=== PATIENT | female | born 1970 | race Caucasian/White ===

== ENCOUNTER 2020-03-15 15:06 | Outpatient (CLI) | payer BC, SELFPAY ==
--- NOTE | ~2020-03-15 | XR_ITS ---
XR knee LT min 4V DATE: 03/15/2020 15:41 INDICATION: Bilateral knee pain TECHNIQUE: 4 views including crosstable lateral COMPARISON: None FINDINGS: Severe osteoarthritis at the patellofemoral and medial compartments. Minimal osteoarthritis at the lateral compartment. No fracture or dislocation or joint effusion. No periosteal reaction or bone destruction or radiopaqu e intra-articular loose body or chondrocalcinosis. IMPRESSION: Tricompartment osteoarthritis involving particularly the medial and patellofemoral compar tments Reviewed, dictated and finalized at location A. IMPRESSION: Tricompartment osteoarthritis involving particularly the medial and patellofemoral compartments
--- NOTE | ~2020-03-15 | XR_ITS ---
XR knee RT min 4V DATE: 03/15/2020 15:41 INDICATION: Bilateral generalized knee pain TECHNIQUE: 4 views including crosstable lateral COMPARISON: None FINDINGS: There is moderately prominent loss of joint space and mild. There is spurring at the medial compartment. There is minimal periarticular spurring at the patellofemoral compartment. No fracture or dislocation or joint effusion. No periosteal reaction or bone destruction. No radiopaq ue intra-articular loose loose body or chondrocalcinosis. IMPRESSION: Osteoarthritis, greatest involvement at the medial compartment Reviewed, dictated and finalized at location A.
== END 2020-03-15 15:07 | disposition home or self-care (01) ==
LOC: ANHIMG 15:14
PROVIDERS: PCP Physician Assistant; Visit Provider Physician Assistant
DX: M17.0 Bilateral primary osteoarthritis of knee (principal)
CPT/HCPCS: 73564

== ENCOUNTER 2020-09-28 06:55 | Outpatient (NON) | payer BC, SELFPAY ==
[2020-09-28 19:42] LABS: SARS-CoV-2 RNA PCR Positive
== END 2020-09-28 06:56 ==
LOC: ANHCOVIDDT 07:06
PROVIDERS: PCP Physician Assistant; Visit Provider Physician Assistant
DX: U07.1 COVID-19 (principal); R05 Cough
CPT/HCPCS: C9803; U0003

== ENCOUNTER 2020-11-18 11:00 | Outpatient (CLI) | payer BC, SELFPAY ==
--- NOTE | ~2020-11-18 | US_ITS ---
EXAMINATION: US pelvic complete w TV EXAM DATE: 11/18/2020 11:56 INDICATION: Thickened endometrial lining. TECHNIQUE: Pelvic transabdominal and transvaginal sonogram was performed. There are multiple graysca le and Doppler images available for interpretation. Comparison is made to prior examination from 08/24 . FINDINGS: Uterus measures 11.7 x 6.9 x 5.3 cm, is only visualized on transabdominal abdominal imagin g. There is centrally hypoechoic region which may or may not be involving the endometrium. This was m easured as the endometrium at 3.4 cm, which if is the endometrium considered significantly thickened. Probably this is the same finding which has been described in [address] and ultrasound. Could not i dentify any vascularity within this, however only was visualized transabdominally. Differential diagn osis includes loculated endometrial fluid, endometrial polyp, endometrial hyperplasia and cancer. Tin y nabothian cyst. Right ovary is identified and morphologically normal, the left is not identified. No left adnexal mas s. IMPRESSION: Persistent abnormal central uterine hypoechogenic region, differential diagnosis includi ng loculated fluid, endometrial polyp, hyperplasia and cancer. Reviewed, dictated and finalized at location B. 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
== END 2020-11-18 11:01 | disposition home or self-care (01) ==
PROVIDERS: PCP Physician Assistant; Visit Provider Obstetrics & Gynecology Gynecology
DX: R93.89 Abnormal findings on diagnostic imaging of other specified body structures (principal)
CPT/HCPCS: 76830; 76856

== ENCOUNTER 2020-11-26 17:11 | Emergency (ER) | payer BC, SELFPAY ==
[2020-11-26 17:20] VITALS: BP 145/97; PULSE 98; RESP 16; TEMP 37.1; O2SAT 98
[2020-11-26 17:21] VITALS: BP 145/97; PULSE 98; RESP 16; TEMP 37.1; O2SAT 98
--- NOTE | 2020-11-26 17:59 | ED.URI ---
HPI - URI/Sore Throat General Chief Complaint: Upper Respiratory Infection Stated Complaint: SORE THROAT Source: patient Mode of arrival: ambulatory Limitations: no limitations History of Present Illness HPI Narrative: Patient is a 50-year-old female who presents complaining of sore throat and headache x2 to 3 days. She reports increasing pain this afternoon. Denies fever. Denies nausea, vomiting or cough. Patient reports having Covid in September. 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 She denies Covid risk. She denies taking any [id number] medications at this time. She denies significant medical history. MD elicited complaint: sore throat Related Data Home Medications Medication Instructions Recorded Confirmed cyanocobalamin (vitamin B-12) 11/26/20 dapagliflozin-metformin [Xigduo XR] PO 11/26/20 escitalopram oxalate mg 11/26/20 hydrochlorothiazide 11/26/20 levothyroxine [Tirosint] PO 11/26/20 lifitegrast [Xiidra] drp 11/26/20 liothyronine mcg 11/26/20 losartan 11/26/20 semaglutide [Ozempic] mg SUBCUT 11/26/20 semaglutide [Ozempic] mg SUBCUT 11/26/20 simvastatin mg 11/26/20 Allergies Allergy/AdvReac Type Severity Reaction Status Date / Time valacyclovir Allergy Mild Rash Unverified 01/06/09 12:43 Review of Systems Review of Systems: Narrative: CONSTITUTIONAL: Denies fever, chills, or sweats. EYES: Denies visual changes, redness, or discharge. ENT: Reports sore throat CARDIOVASCULAR: Denies chest pain, palpitations, or edema. RESPIRATORY: Denies cough or dyspnea. GASTROINTESTINAL: Denies abdominal pain, nausea, vomiting, or diarrhea. GENITOURINARY: Denies dysuria or hematuria. SKIN: Denies rash or itching. MUSCULOSKELETAL: Denies back pain, joint pain, or myalgia. NEUROLOGIC: Reports headache, denies numbness, dizziness, or weakness. PSYCHIATRIC: Denies anxiety or depression. [facility] Past Medical History Medical History COVID-19 DM II (diabetes mellitus, type II), controlled H/O: HTN (hypertension) History of angina History of kidney stones Hypercholesteremia Renal disease Surgical History Surgical History History of classical section Hx of tubal ligation Family History Family History Sibling Family history of obesity Asthma Grandparent Family history of obesity Family history of osteoporosis Depression Family history of chronic obstructive pulmonary disease Diabetes mellitus Mother Family history of migraine headaches Hypertension Social History Social History Smoking status: Never smoker Second hand tobacco smoke exposure: Yes Alcohol intake: never Gender identity (if verbalized by the patient): Female Comments At the time of signature, I have reviewed and agree with nursing past medical, surgical, social, and family history unless otherwise noted. Please see nursing chart for further information. There is no relevant family history pertinent to the presenting complaint. Exam Narrative: Exam Narrative: GENERAL: Well-appearing, well-nourished, and in no acute distress. HEAD: Normocephalic, atraumatic. EYES: EOMI. No redness or drainage. Conjunctiva are normal. ENT: Mucous membranes pink and moist. Nares clear. Throat normal erythema, edema and exudate noted. Uvula midline. NECK: Positive cervical lymphadenopathy. CHEST: No respiratory distress. HEART: Regular rate and rhythm. EXTREMITIES: Normal range of motion. No edema. SKIN: Warm, dry, no rash. NEURO: No focal deficits. Alert and oriented x3. Gait steady. PSYCH: Normal affect. No signs of depression or anxiety. Course Vital Signs Vital signs: Vital Signs Temperature 37.1 C 11/26/20 17:20 Pulse Rate 98
[2020-11-29 18:03] LABS: SARS-CoV-2 RNA PCR Negative
== END 2020-11-26 18:04 | disposition home or self-care (01) ==
PROVIDERS: Emergency Provider Nurse Practitioner; PCP Physician Assistant
DX: J02.9 Acute pharyngitis, unspecified (principal); Z20.822 Contact with and (suspected) exposure to COVID-19; E11.9 Type 2 diabetes mellitus without complications; I10 Essential (primary) hypertension; I20.9 Angina pectoris, unspecified; E78.00 Pure hypercholesterolemia, unspecified; Z86.16 Personal history of COVID-19; Z87.442 Personal history of urinary calculi
CPT/HCPCS: 87081; 87880; 99213; C9803; G0463; U0003; U0005

== ENCOUNTER 2020-12-23 07:53 | Outpatient (CLI) | payer BC, SELFPAY ==
--- NOTE | 2020-12-23 08:00 | ECG_ITS ---
Measurements Intervals [place] Rate: 73 P: -12 DC: 130 QRS: 11 QRSD: 114 T: 30 QT: 383 QTc: 423 Interpretive Statements SINUS RHYTHM INTRAVENTRICULAR CONDUCTION DELAY POOR R WAVE PROGRESSION, ANTERIOR LEADS BORDERLINE T WAVE ABNORMALITY- ANTERIOR LEADS BORDERLINE ECG Electronically Signed On 12-23-2020 8:21:00 CDT by Ravin Feliciano D.O.
[2020-12-23 08:59] LABS: Anion Gap 7 mmol/L (8-16); Blood Urea Nitrogen 18 mg/dL (7-17); Calcium 8.9 mg/dL (8.4-10.2); Carbon Dioxide 31 mmol/L (22-30); Chloride 102 mmol/L (98-107); Estimated Glomerular Filt Rate > 60; Glucose 138 mg/dL (65-105); Potassium 3.4 mmol/L (3.4-5.0); Sodium 140 mmol/L (137-145)
== END 2020-12-23 07:54 | disposition home or self-care (01) ==
LOC: ANHSURGERY 07:55
PROVIDERS: Anesthesiology; PCP Physician Assistant; Visit Provider Obstetrics & Gynecology Gynecology
DX: Z01.818 Encounter for other preprocedural examination (principal); E11.9 Type 2 diabetes mellitus without complications; E78.00 Pure hypercholesterolemia, unspecified
CPT/HCPCS: 36415; 80048; 93005

== ENCOUNTER → 2020-12-24 05:00 | Outpatient (CLI) | payer BC, SELFPAY ==
[2020-12-24 19:22] LABS: SARS-CoV-2 RNA PCR Negative
== END ==
PROVIDERS: PCP Physician Assistant; Visit Provider Obstetrics & Gynecology Gynecology
DX: Z01.812 Encounter for preprocedural laboratory examination (principal); Z20.822 Contact with and (suspected) exposure to COVID-19
CPT/HCPCS: C9803; U0003; U0005

== ENCOUNTER 2020-12-27 01:48 | Day surgery (SDC) | payer BC, SELFPAY ==
[2020-12-14 08:44] VITALS: BMI 48.9
--- NOTE | 2020-12-27 07:23 | WPDHPUPDATE1 ---
History and Physical Update Update Date/Time: 12/27/20 07:23 History and Physical has been reviewed, including an updated exam of the patient. There are NO changes in the patient's condition. Risks, benefits, and alternatives have been discussed and questions answered. Patient agrees to proceed with procedure.
--- NOTE | 2020-12-27 07:23 | PM.HPGS ---
History of Present Illness History of Present Illness Consent: Risks, benefits, and alternatives have been discussed and questions answered. Patient agrees to proceed with procedure. Chief complaint: thickened endometrium Narrative: Tatiana Ayala is a 50 year old female with episode of pelvic pain 09/11 that she went to ER for. Pelvic u/s showed 1.8 cm echogenic debris in endometrium. Patient did not follow up again until 10/28/20. She states no further pain until recent 4 hour episode but on repeat u/s possible 3.4 cm that may be in the endometrium. Recommend furrther work up with hysteroscopy. Risks of infection, bleeding, perforation, and inability to enter endometium were discussed with patient. Agrees to proceed. Review of Systems Review of Systems: Narrative: not repeated day of surgery; patient states no changes in status PMFSH Past Medical History Medical History (Updated 12/27/20 @ 07:31 by Mami Posey MD) COVID-19 Depression DM II (diabetes mellitus, type II), controlled H/O: HTN (hypertension) History of angina History of kidney stones Hypercholesteremia (normal spontaneous vaginal delivery) Renal disease Sleep apnea Surgical History Surgical History (Updated 12/27/20 @ 07:29 by Mami Posey MD) History of Hx of tubal ligation Status post hysteroscopic ablation of endometrium Family History Family History Sibling Family history of obesity Asthma Grandparent Family history of obesity Family history of osteoporosis Depression Family history of chronic obstructive pulmonary disease Diabetes mellitus Mother Family history of migraine headaches Hypertension Social History Social History Smoking status: Never smoker Second hand tobacco smoke exposure: Yes Alcohol intake: never Substance use: never Substance use type: does not use Living arrangements: with family Gender identity (if verbalized by the patient): Female Spiritual care concerns: No Meds Home Medications and Allergies Home Medications Medication Instructions Recorded Confirmed Type dapagliflozin-metformin [Xigduo XR] 1 tablet PO DAILY 11/26/20 12/14/20 History escitalopram oxalate 10 mg PO DAILY 11/26/20 12/14/20 History hydrochlorothiazide 25 mg PO DAILY 11/26/20 12/14/20 History levothyroxine [Tirosint] 125 mcg PO DAILY 11/26/20 12/14/20 History lifitegrast [Xiidra] 1 drp EACH EYE DAILY 11/26/20 12/14/20 History liothyronine 5 mcg PO DAILY 11/26/20 12/14/20 History losartan 50 mg PO DAILY 11/26/20 12/14/20 History semaglutide [Ozempic] 1 mg SUBCUT WEEKLY 11/26/20 12/14/20 History simvastatin 20 mg PO DAILY 11/26/20 12/14/20 History Vitamin D3 (calcium cit-phos) 50,000 units IM MONTHLY 12/14/20 12/14/20 History fexofenadine-pseudoephedrine 1 tablet PO QAM 12/14/20 12/14/20 History [Melissa-D 24 Hour] ibuprofen 600 mg PO DAILY 12/14/20 12/14/20 History mgrur-5y-ejx-epa-fish oil-D3 1 cap PO DAILY 12/14/20 12/14/20 History [Vitamin-D + [place]-3] Allergies Allergy/AdvReac Type Severity Reaction Status Date / Time cortisone Allergy Mild Confusion Verified 12/14/20 08:38 valacyclovir Allergy Mild Rash Unverified 12/14/20 08:38 Exam Const: General: healthy appearing and alert Orientation/consciousness: patient oriented x3 Resp: Effort & Inspection: normal respiratory effort Auscultation: clear to auscultation bilaterally Cardio: Rate: regular rate Rhythm: regular rhythm GI: GI Palp: Yes Soft to palpation, No Tenderness to palpation present (GI) and No Palpable mass present : External Female Exam: normal external appearance Speculum Exam - Vagina: normal appearance of the vagina and normal vaginal discharge Speculum Exam - Cervix: normal appearance of the cervix Bimanual exam- vagina & uterus: uterine size normal and consistency normal Bimanual
[2020-12-27 07:27] VITALS: BP 133/91; PULSE 76; RESP 16; TEMP 36.5; O2SAT 96
[2020-12-27] MEDS: ACETAMINOPHEN 500 MG TABLET 1000 MG PO (07:49)
--- NOTE | 2020-12-27 08:03 | WPDANESEPPF ---
Anes - Initial Pre Proc Eval Procedure: Operation Date: 12/27/20 09:30 Proposed Procedures p Hysteroscopy, Dilation and Curettage - Mami Posey MD Date/Time: 12/27/20 08:03 Surgeon: Mami Posey MD Pre Op Diagnosis: thickened endometrium Patient Data Age: 50 Gender: F Height: 5 ft 2 in Weight: 118.5 kg Last Vital Signs Temp 36.5 C 12/27/20 07:27 Pulse 76 12/27/20 07:27 Resp 16 12/27/20 07:27 BP 133/91 H 12/27/20 07:27 Pulse Ox 96 12/27/20 07:27 Allergies Allergy/AdvReac Type Severity Reaction Status Date / Time cortisone Allergy Mild Confusion Verified 12/27/20 07:43 valacyclovir Allergy Mild Rash Unverified 12/27/20 07:43 Home Medications Medication Instructions Recorded Confirmed Type dapagliflozin-metformin [Xigduo XR] 1 tablet PO DAILY 11/26/20 12/27/20 History escitalopram oxalate 10 mg PO DAILY 11/26/20 12/27/20 History hydrochlorothiazide 25 mg PO DAILY 11/26/20 12/27/20 History levothyroxine [Tirosint] 125 mcg PO DAILY 11/26/20 12/27/20 History lifitegrast [Xiidra] 1 drp EACH EYE DAILY 11/26/20 12/27/20 History liothyronine 5 mcg PO DAILY 11/26/20 12/27/20 History losartan 50 mg PO DAILY 11/26/20 12/27/20 History semaglutide [Ozempic] 1 mg SUBCUT WEEKLY 11/26/20 12/27/20 History simvastatin 20 mg PO DAILY 11/26/20 12/27/20 History Vitamin D3 (calcium cit-phos) 50,000 units IM MONTHLY 12/14/20 12/27/20 History ibuprofen 600 mg PO DAILY 12/14/20 12/27/20 History uqdcz-5c-zap-epa-fish oil-D3 1 cap PO DAILY 12/14/20 12/27/20 History [Vitamin-D + [place]-3] Patient hx anesthesia problems: post op nausea/vomiting Family hx anesthesia problems: none PMFSH Past Medical History Medical History COVID-19 Depression DM II (diabetes mellitus, type II), controlled H/O: HTN (hypertension) History of angina History of kidney stones Hypercholesteremia (normal spontaneous vaginal delivery) Renal disease Sleep apnea Surgical History Surgical History History of Hx of tubal ligation Status post hysteroscopic ablation of endometrium Family History Family History Sibling Family history of obesity Asthma Grandparent Family history of obesity Family history of osteoporosis Depression Family history of chronic obstructive pulmonary disease Diabetes mellitus Mother Family history of migraine headaches Hypertension Social History Social History Smoking status: Never smoker Second hand tobacco smoke exposure: Yes Alcohol intake: never Substance use: never Substance use type: does not use Living arrangements: with family Gender identity (if verbalized by the patient): Female Spiritual care concerns: No Anes - Eval Final PreProcedure Day of Procedure 12/27/20 08:03 Patient weight: morbidly obese Heart: regular rate and rhythm Lungs: clear to auscultation Airway: Mallampati scale class II Neurological: alert and oriented Last oral intake: >/= 8 hours ASA classification: III Emergent: no Anesthetic plan: proceed Anesthesia type and monitoring: general GIVS and standard monitoring Informed Consent: The patient's anesthetic plan and its attendant risks and benefits were discussed with the patient/family/POA. Questions were solicited and answers provided to the satisfaction of the patient/family/POA.
[2020-12-27] MEDS: SCOPOLAMINE 1.5 MG PATCH TRANSDERM (08:08)
[2020-12-27] MEDS: LACTATED RINGERS 1,000 ML 30 ML IV CONT (08:20)
[2020-12-27 08:27] LABS: Glucose Point of Care 130 (65-105)
[2020-12-27] MEDS: KETOROLAC 30 MG/ML VIAL (*BKC) IV PUSH (09:44)
--- NOTE | 2020-12-27 09:48 | PM.PROC ---
Procedure Note - Detailed Date of procedure: 12/27/20 Pre-op diagnosis: thickened endometrium Pelvic pain Post-op diagnosis: same Procedure performed: D&C hysteroscopy with myosure Description of procedure: The patient was taken to the operating room and placed under anesthesia in the dorsal lithotomy position. She was prepped and draped in the usual sterile fashion. [place] speculum was placed in the vagina and the cervix is grasped on the anterior lip with a tenaculum. The cervix is injected with 1% lidocaine in each quadrant. The uterus is attempted to be sounded but the internal os is stenotic. Os Finders are utilized to open the internal os. The cervix was then serially dilated with [place]. The diagnostic hysteroscope is placed and the cavity appears smooth and scarred consistent with prior endometrial ablation. Per ultrasound there is a 3.5cm pocket of fluid behind probable scar tissue so the MyoSure device is opened and placed upon resecting the scar tissue to the patient's left in the midline of the fundus a pocket of fluid blood and debris is opened up the scar tissue is continued to be excised until a large opening in the pocket is made. All instruments were then removed and the patient is awakened from anesthesia and taken to recovery in stable condition. Sponge, needle, and instrument counts are correct per the OR staff. Anesthesia: MAC and local Surgeon: Mami Posey MD Estimated blood loss (mL): 5 Drains: No Packing: No Pathology: yes (endometrial curettings) Complications: No immediate complications Condition: stable Disposition: PACU Findings: endometirum scarred consistent with prior endometrial ablation; pocket of fluid, blood, and debris to left of midline behind scar tissue
[2020-12-27 09:54] VITALS: BP 126/82; PULSE 82; RESP 16; O2SAT 92
[2020-12-27 10:06] LABS: Glucose Point of Care 109 (65-105)
[2020-12-27 10:20] VITALS: BP 133/90; PULSE 78; RESP 16; O2SAT 95
[2020-12-27 10:45] VITALS: BP 116/83; PULSE 65; RESP 14; O2SAT 95
== END 2020-12-27 11:02 | disposition home or self-care (01) ==
PROVIDERS: PCP Physician Assistant; Visit Provider Obstetrics & Gynecology Gynecology
PROC: 0U5B8ZZ Destruction of Endometrium, Via Natural or Artificial Opening Endoscopic (ICD-10-PCS; CPT 58563; principal; 2020-12-27 09:30)
DX: N85.8 Other specified noninflammatory disorders of uterus (principal); R10.2 Pelvic and perineal pain; E11.9 Type 2 diabetes mellitus without complications; F32.9 Major depressive disorder, single episode, unspecified; E78.00 Pure hypercholesterolemia, unspecified; G47.30 Sleep apnea, unspecified; Z86.16 Personal history of COVID-19; N28.9 Disorder of kidney and ureter, unspecified; E66.01 Morbid (severe) obesity due to excess calories; Z68.42 Body mass index [BMI] 45.0-49.9, adult; I10 Essential (primary) hypertension; Z86.79 Personal history of other diseases of the circulatory system; E03.9 Hypothyroidism, unspecified
CPT/HCPCS: 58558; 88305; A9270; J1885; J2250; J2405; J2704; J3010; J7030; J7120

== ENCOUNTER → 2021-08-10 08:33 | Outpatient (CLI) | payer BC, SELFPAY ==
[2021-08-10 18:47] LABS: SARS-CoV-2 RNA PCR Negative
== END ==
PROVIDERS: PCP Physician Assistant; Visit Provider Physician Assistant
DX: R51.9 Headache, unspecified (principal); Z20.822 Contact with and (suspected) exposure to COVID-19
CPT/HCPCS: C9803; U0003; U0005

== ENCOUNTER → 2021-08-25 04:26 | Outpatient (CLI) | payer BC, SELFPAY ==
[2021-08-25 17:37] LABS: SARS-CoV-2 RNA PCR Negative
== END ==
PROVIDERS: PCP Physician Assistant; Visit Provider Physician Assistant
DX: R68.89 Other general symptoms and signs (principal); Z20.822 Contact with and (suspected) exposure to COVID-19
CPT/HCPCS: C9803; U0003; U0005

== ENCOUNTER 2022-01-13 00:42 | Day surgery (SDC) | payer BC, SELFPAY ==
[2022-01-03 08:54] VITALS: BMI 49.1
[2022-01-13 08:41] VITALS: BMI 47.6
--- NOTE | 2022-01-13 08:45 | PM.HPGS ---
History of Present Illness History of Present Illness Consent: Risks, benefits, and alternatives have been discussed and questions answered. Patient agrees to proceed with procedure. Chief complaint: neoplasm screening Narrative: Tatiana Ayala is a 51 year old female referred for colon cancer screening. Review of Systems Review of Systems: All systems reviewed & are unremarkable except as noted in HPI and below PMFSH Past Medical History Medical History COVID-19 Depression DM II (diabetes mellitus, type II), controlled H/O: HTN (hypertension) History of angina History of kidney stones Hypercholesteremia (normal spontaneous vaginal delivery) Renal disease Sleep apnea Surgical History Surgical History History of Hx of tubal ligation Status post hysteroscopic ablation of endometrium Family History Family History Sibling Family history of obesity Asthma Grandparent Family history of obesity Family history of osteoporosis Depression Family history of chronic obstructive pulmonary disease Diabetes mellitus Mother Family history of migraine headaches Hypertension Social History Social History Smoking status: Never smoker Second hand tobacco smoke exposure: Yes Alcohol intake: never Substance use: never Substance use type: does not use Living arrangements: with family Gender identity (if verbalized by the patient): Female Spiritual care concerns: No Meds Home Medications and Allergies Home Medications Medication Instructions Recorded Confirmed Type escitalopram oxalate 15 mg PO DAILY 11/26/20 01/13/22 History hydrochlorothiazide 25 mg PO DAILY 11/26/20 01/13/22 History levothyroxine [Tirosint] 125 mcg PO DAILY 11/26/20 01/13/22 History lifitegrast [Xiidra] 1 drp EACH EYE DAILY 11/26/20 01/13/22 History liothyronine 5 mcg PO DAILY 11/26/20 01/13/22 History losartan 50 mg PO DAILY 11/26/20 01/13/22 History semaglutide [Ozempic] 1 mg SUBCUT WEEKLY 11/26/20 01/13/22 History simvastatin 20 mg PO DAILY 11/26/20 01/13/22 History Vitamin D3 (calcium cit-phos) 50,000 units IM MONTHLY 12/14/20 01/13/22 History qfmad-7u-kwz-epa-fish oil-D3 3 cap PO DAILY 12/14/20 01/13/22 History [Vitamin-D + [place]-3] empagliflozin-metformin [Synjardy 1 tablet PO DAILY 01/03/22 01/13/22 History XR] fexofenadine [Melissa Allergy] 180 mg PO DAILY 01/03/22 01/13/22 History Allergies Allergy/AdvReac Type Severity Reaction Status Date / Time cortisone Allergy Mild Confusion Verified 01/13/22 08:40 valacyclovir Allergy Mild Rash Verified 01/13/22 08:40 Assessment and Plan Assessment and plan (1) Colon cancer screening: Code(s): Z12.11 - Encounter for screening for malignant neoplasm of colon Status: Acute Assessment and Plan: Colonoscopy with possible biopsy or polypectomy or cautery or injection of substances.
[2022-01-13 08:47] VITALS: BP 140/100; PULSE 99; RESP 18; TEMP 36.5; O2SAT 98
[2022-01-13] MEDS: LACTATED RINGERS 1,000 ML 150 ML IV CONT (08:49)
[2022-01-13 09:05] LABS: Glucose Point of Care 147 mg/dl (65-105)
--- NOTE | 2022-01-13 09:23 | WPDANESEPPF ---
Anes - Initial Pre Proc Eval Procedure: Operation Date: 01/13/22 09:45 Proposed Procedures p Screening Colonoscopy - Matty Genao MD Date/Time: 01/13/22 09:23 Surgeon: Matty Genao MD Pre Op Diagnosis: neoplasm screening Patient Data Age: 51 Gender: F Height: 1.57 m Weight: 118.1 kg Last Vital Signs Temp 97.7 F 01/13/22 08:47 Pulse 99 01/13/22 08:47 Resp 18 01/13/22 08:47 BP 140/100 H 01/13/22 08:47 Pulse Ox 98 01/13/22 08:47 Allergies Allergy/AdvReac Type Severity Reaction Status Date / Time cortisone Allergy Mild Confusion Verified 01/13/22 08:40 valacyclovir Allergy Mild Rash Verified 01/13/22 08:40 Home Medications Medication Instructions Recorded Confirmed Type escitalopram oxalate 15 mg PO DAILY 11/26/20 01/13/22 History hydrochlorothiazide 25 mg PO DAILY 11/26/20 01/13/22 History levothyroxine [Tirosint] 125 mcg PO DAILY 11/26/20 01/13/22 History lifitegrast [Xiidra] 1 drp EACH EYE DAILY 11/26/20 01/13/22 History liothyronine 5 mcg PO DAILY 11/26/20 01/13/22 History losartan 50 mg PO DAILY 11/26/20 01/13/22 History semaglutide [Ozempic] 1 mg SUBCUT WEEKLY 11/26/20 01/13/22 History simvastatin 20 mg PO DAILY 11/26/20 01/13/22 History Vitamin D3 (calcium cit-phos) 50,000 units IM MONTHLY 12/14/20 01/13/22 History ftghg-7t-gny-epa-fish oil-D3 3 cap PO DAILY 12/14/20 01/13/22 History [Vitamin-D + [place]-3] empagliflozin-metformin [Synjardy 1 tablet PO DAILY 01/03/22 01/13/22 History XR] fexofenadine [Melissa Allergy] 180 mg PO DAILY 01/03/22 01/13/22 History Laboratory Tests 01/13/22 09:02 POC Capillary Glucose 147 mg/dl H mg/dl (65-105) Patient hx anesthesia problems: none Family hx anesthesia problems: none Results Review: All pre-operative results and documents have been reviewed as part of the pre-operative evaluation. [facility] Past Medical History Medical History COVID-19 Depression DM II (diabetes mellitus, type II), controlled H/O: HTN (hypertension) History of angina History of kidney stones Hypercholesteremia (normal spontaneous vaginal delivery) Renal disease Sleep apnea Surgical History Surgical History History of Hx of tubal ligation Status post hysteroscopic ablation of endometrium Family History Family History Sibling Family history of obesity Asthma Grandparent Family history of obesity Family history of osteoporosis Depression Family history of chronic obstructive pulmonary disease Diabetes mellitus Mother Family history of migraine headaches Hypertension Social History Social History Smoking status: Never smoker Second hand tobacco smoke exposure: Yes Alcohol intake: never Substance use: never Substance use type: does not use Living arrangements: with family Gender identity (if verbalized by the patient): Female Spiritual care concerns: No Anes - Eval Final PreProcedure Day of Procedure 01/13/22 09:23 Patient weight: morbidly obese Heart: regular rate and rhythm Lungs: clear to auscultation Airway: Mallampati scale class II Neurological: alert and oriented Last oral intake: >/= 8 hours ASA classification: III Emergent: no Anesthetic plan: proceed Anesthesia type and monitoring: general GIVS and standard monitoring Results Review: All pre-operative results and documents have been reviewed as part of the pre-operative evaluation. Informed Consent: The patient's anesthetic plan and its attendant risks and benefits were discussed with the patient/family/POA. Questions were solicited and answers provided to the satisfaction of the patient/family/POA.
[2022-01-13] MEDS: SIMETHICONE ORAL SUSPENSION 20 MG/0.3 ML 30 ML BOTTLE 0.6 ML IRRIGATION (09:46)
[2022-01-13 09:54] VITALS: BP 125/77; PULSE 76; RESP 15; O2SAT 94
[2022-01-13 10:04] VITALS: BP 124/84; PULSE 71; RESP 25; O2SAT 98
[2022-01-13 10:14] VITALS: BP 128/81; PULSE 72; RESP 16; O2SAT 97
== END 2022-01-13 10:14 | disposition home or self-care (01) ==
PROVIDERS: PCP Physician Assistant; Visit Provider Internal Medicine Gastroenterology
PROC: 0DJD8ZZ Inspection of Lower Intestinal Tract, Via Natural or Artificial Opening Endoscopic (ICD-10-PCS; CPT 45378; principal; 2022-01-13 09:45)
DX: Z12.11 Encounter for screening for malignant neoplasm of colon (principal); K57.30 Diverticulosis of large intestine without perforation or abscess without bleeding; E03.9 Hypothyroidism, unspecified; Z86.16 Personal history of COVID-19; F32.9 Major depressive disorder, single episode, unspecified; E11.9 Type 2 diabetes mellitus without complications; E78.00 Pure hypercholesterolemia, unspecified; G47.30 Sleep apnea, unspecified; E66.01 Morbid (severe) obesity due to excess calories; Z68.42 Body mass index [BMI] 45.0-49.9, adult
CPT/HCPCS: 45378; 82948; J2704; J7120

== ENCOUNTER 2022-05-12 01:00 | Day surgery (SDC) | payer BC, SELFPAY ==
[2022-05-01 16:03] VITALS: BMI 47.5
--- NOTE | 2022-05-11 13:29 | PM.HPGS ---
History of Present Illness History of Present Illness Consent: Risks, benefits, and alternatives have been discussed and questions answered. Patient agrees to proceed with procedure. Chief complaint: dysphagia Narrative: Tatiana Ayala is a 51 year old female with intermittent dysphagia for solid food.This happens every week or 2. This has been going on for couple of years. Review of Systems Review of Systems: All systems reviewed & are unremarkable except as noted in HPI and below PMFSH Past Medical History Medical History COVID-19 Depression DM II (diabetes mellitus, type II), controlled H/O: HTN (hypertension) History of angina History of kidney stones Hypercholesteremia (normal spontaneous vaginal delivery) Renal disease Sleep apnea Surgical History Surgical History History of Hx of tubal ligation Status post hysteroscopic ablation of endometrium Family History Family History Sibling Family history of obesity Asthma Grandparent Family history of obesity Family history of osteoporosis Depression Family history of chronic obstructive pulmonary disease Diabetes mellitus Mother Family history of migraine headaches Hypertension Social History Social History Smoking status: Never smoker Second hand tobacco smoke exposure: Yes Alcohol intake: never Substance use: never Substance use type: does not use Living arrangements: with family Gender identity (if verbalized by the patient): Female Spiritual care concerns: No Meds Home Medications and Allergies Home Medications Medication Instructions Recorded Confirmed Type escitalopram oxalate 10 mg tablet 15 mg PO DAILY 11/26/20 05/12/22 History hydrochlorothiazide 25 mg tablet 25 mg PO DAILY 11/26/20 05/12/22 History levothyroxine 125 mcg capsule 125 mcg PO DAILY 11/26/20 05/12/22 History (Tirosint) lifitegrast 5 % eye drops in a 1 drp EACH EYE BID 11/26/20 05/12/22 History dropperette (Xiidra) liothyronine 5 mcg tablet 5 mcg PO BID 11/26/20 05/12/22 History losartan 50 mg tablet 50 mg PO DAILY 11/26/20 05/12/22 History semaglutide 1 mg/dose (2 mg/1.5 1 mg subcut WEEKLY 11/26/20 05/12/22 History mL) subcutaneous pen injector (Ozempic) simvastatin 20 mg tablet 20 mg PO DAILY 11/26/20 05/12/22 History Vitamin D3 (calcium cit-phos) 50,000 units PO MONTHLY 12/14/20 05/12/22 History [id number]-[id number]-nhq-epa-fish oil-vit D3 3 cap PO DAILY 12/14/20 05/12/22 History 350 mg-400 mg-1,000 unit capsule empagliflozin 5 mg-metformin ER 1 tablet PO DAILY 01/03/22 05/12/22 History 1,000 mg tablet,extended release 24 hr (Synjardy XR) fexofenadine 180 mg tablet 180 mg PO DAILY 01/03/22 05/12/22 History (Melissa Allergy) Allergies Allergy/AdvReac Type Severity Reaction Status Date / Time cortisone Allergy Mild Confusion Verified 05/12/22 10:26 valacyclovir Allergy Mild Rash Verified 05/12/22 10:26 Exam Const: General: alert Orientation/consciousness: patient oriented x3 Resp: Auscultation: clear to auscultation bilaterally Cardio: Rhythm: regular rhythm GI: GI Palp: Yes Soft to palpation and No Tenderness to palpation present (GI) Neuro: General: patient oriented x3 Assessment and Plan Assessment and plan (1) Dysphagia: Code(s): R13.10 - Dysphagia, unspecified Status: Acute Assessment and Plan: EGD with possible biopsy or dilatation or cautery.
[2022-05-12 10:27] VITALS: BP 136/88; PULSE 85; RESP 18; TEMP 36.5; O2SAT 94
[2022-05-12] MEDS: LACTATED RINGERS 1,000 ML 150 ML IV CONT (10:40)
[2022-05-12 10:43] LABS: Glucose Point of Care 120 mg/dl (65-105)
--- NOTE | 2022-05-12 11:02 | WPDANESEPPF ---
Anes - Initial Pre Proc Eval Procedure: Operation Date: 05/12/22 11:30 Proposed Procedures p Esophagogastroduodenoscopy - Matty Genao MD Date/Time: 05/12/22 11:02 Surgeon: Matty Genao MD Pre Op Diagnosis: dysphagia Patient Data Age: 51 Gender: F Height: 1.57 m Weight: 118.5 kg Last Vital Signs Temp 97.7 F 05/12/22 10:27 Pulse 85 05/12/22 10:27 Resp 18 05/12/22 10:27 BP 136/88 05/12/22 10:27 Pulse Ox 94 05/12/22 10:27 O2 Del Method Room Air 05/12/22 10:27 Allergies Allergy/AdvReac Type Severity Reaction Status Date / Time cortisone Allergy Mild Confusion Verified 05/12/22 10:26 valacyclovir Allergy Mild Rash Verified 05/12/22 10:26 Home Medications Medication Instructions Recorded Confirmed Type escitalopram oxalate 10 mg tablet 15 mg PO DAILY 11/26/20 05/12/22 History hydrochlorothiazide 25 mg tablet 25 mg PO DAILY 11/26/20 05/12/22 History levothyroxine 125 mcg capsule 125 mcg PO DAILY 11/26/20 05/12/22 History (Tirosint) lifitegrast 5 % eye drops in a 1 drp EACH EYE BID 11/26/20 05/12/22 History dropperette (Xiidra) liothyronine 5 mcg tablet 5 mcg PO BID 11/26/20 05/12/22 History losartan 50 mg tablet 50 mg PO DAILY 11/26/20 05/12/22 History semaglutide 1 mg/dose (2 mg/1.5 1 mg subcut WEEKLY 11/26/20 05/12/22 History mL) subcutaneous pen injector (Ozempic) simvastatin 20 mg tablet 20 mg PO DAILY 11/26/20 05/12/22 History Vitamin D3 (calcium cit-phos) 50,000 units PO MONTHLY 12/14/20 05/12/22 History wcafv-[id number]-hpw-epa-fish oil-vit D3 3 cap PO DAILY 12/14/20 05/12/22 History 350 mg-400 mg-1,000 unit capsule empagliflozin 5 mg-metformin ER 1 tablet PO DAILY 01/03/22 05/12/22 History 1,000 mg tablet,extended release 24 hr (Synjardy XR) fexofenadine 180 mg tablet 180 mg PO DAILY 01/03/22 05/12/22 History (Melissa Allergy) Laboratory Tests 05/12/22 10:36 POC Capillary Glucose 120 mg/dl H mg/dl (65-105) Patient hx anesthesia problems: none Family hx anesthesia problems: none Results Review: All pre-operative results and documents have been reviewed as part of the pre-operative evaluation. [facility] Past Medical History Medical History COVID-19 Depression DM II (diabetes mellitus, type II), controlled H/O: HTN (hypertension) History of angina History of kidney stones Hypercholesteremia (normal spontaneous vaginal delivery) Renal disease Sleep apnea Surgical History Surgical History History of Hx of tubal ligation Status post hysteroscopic ablation of endometrium Family History Family History Sibling Family history of obesity Asthma Grandparent Family history of obesity Family history of osteoporosis Depression Family history of chronic obstructive pulmonary disease Diabetes mellitus Mother Family history of migraine headaches Hypertension Social History Social History Smoking status: Never smoker Second hand tobacco smoke exposure: Yes Alcohol intake: never Substance use: never Substance use type: does not use Living arrangements: with family Gender identity (if verbalized by the patient): Female Spiritual care concerns: No Anes - Eval Final PreProcedure Day of Procedure 05/12/22 11:02 Patient weight: morbidly obese Airway: Mallampati scale class III ASA classification: III Anesthesia type and monitoring: general GIVS and standard monitoring Results Review: All pre-operative results and documents have been reviewed as part of the pre-operative evaluation. Informed Consent: The patient's anesthetic plan and its attendant risks and benefits were discussed with the patient/family/POA. Questions were solicited and answers provided to the satisfact
[2022-05-12 11:39] VITALS: BP 131/83; PULSE 82; RESP 24; O2SAT 95
[2022-05-12 11:49] VITALS: BP 150/96; PULSE 80; RESP 18; O2SAT 94
[2022-05-12 11:59] VITALS: BP 140/95; PULSE 69; RESP 18; O2SAT 95
== END 2022-05-12 12:10 | disposition home or self-care (01) ==
PROVIDERS: PCP Physician Assistant; Visit Provider Internal Medicine Gastroenterology
PROC: 0DJ08ZZ Inspection of Upper Intestinal Tract, Via Natural or Artificial Opening Endoscopic (ICD-10-PCS; CPT 43235; principal; 2022-05-12 11:30)
DX: R13.10 Dysphagia, unspecified (principal); D13.0 Benign neoplasm of esophagus; F32.A Depression, unspecified; E11.9 Type 2 diabetes mellitus without complications; I10 Essential (primary) hypertension; E78.00 Pure hypercholesterolemia, unspecified; N28.9 Disorder of kidney and ureter, unspecified; E66.01 Morbid (severe) obesity due to excess calories; Z68.42 Body mass index [BMI] 45.0-49.9, adult; Z86.16 Personal history of COVID-19
CPT/HCPCS: 43251; 43239; 82948; 88305; J2704; J7120

== ENCOUNTER 2022-10-20 00:10 | Day surgery (SDC) | payer BC, SELFPAY ==
[2022-10-03 14:43] VITALS: BMI 45.7
--- NOTE | 2022-10-19 14:29 | PM.HPGS ---
History of Present Illness History of Present Illness Consent: Risks, benefits, and alternatives have been discussed and questions answered. Patient agrees to proceed with procedure. Chief complaint: Eosinophilic Esophagitis Narrative: Tatiana Ayala is a 52 year old female Who has been having difficulty swallowing solid food for many months. An EGD done several weeks ago revealed changes consistent with eosinophilic esophagitis. There were 79 eosinophils per high-powered field in biopsies of the proximal esophagus. She has been taking pantoprazole 40 mg daily Review of Systems Review of Systems: All systems reviewed & are unremarkable except as noted in HPI and below PMFSH Past Medical History Medical History COVID-19 Depression DM II (diabetes mellitus, type II), controlled H/O: HTN (hypertension) History of angina History of kidney stones Hypercholesteremia (normal spontaneous vaginal delivery) Renal disease Sleep apnea Surgical History Surgical History History of Hx of tubal ligation Status post hysteroscopic ablation of endometrium Family History Family History Sibling Family history of obesity Asthma Grandparent Family history of obesity Family history of osteoporosis Depression Family history of chronic obstructive pulmonary disease Diabetes mellitus Mother Family history of migraine headaches Hypertension Social History Social History Smoking status: Never smoker Second hand tobacco smoke exposure: Yes Alcohol intake: never Substance use: never Substance use type: does not use Living arrangements: alone Gender identity (if verbalized by the patient): Female Spiritual care concerns: No Meds Home Medications and Allergies Home Medications Medication Instructions Recorded Confirmed Type escitalopram oxalate 10 mg tablet 10 mg PO DAILY 11/26/20 10/20/22 History hydrochlorothiazide 25 mg tablet 25 mg PO DAILY 11/26/20 10/20/22 History levothyroxine 125 mcg capsule 125 mcg PO DAILY 11/26/20 10/20/22 History (Tirosint) lifitegrast 5 % eye drops in a 1 drp EACH EYE DAILY 11/26/20 10/20/22 History dropperette (Xiidra) liothyronine 5 mcg tablet 5 mcg PO BID 11/26/20 10/20/22 History losartan 50 mg tablet 50 mg PO DAILY 11/26/20 10/20/22 History simvastatin 20 mg tablet 20 mg PO DAILY 11/26/20 10/20/22 History Vitamin D3 (calcium cit-phos) 50,000 units PO MONTHLY 12/14/20 10/20/22 History zaeap-9t-gsk-epa-fish oil-vit D3 3 cap PO DAILY 12/14/20 10/20/22 History 350 mg-400 mg-1,000 unit capsule empagliflozin 5 mg-metformin ER 1 tablet PO DAILY 01/03/22 10/20/22 History 1,000 mg tablet,extended release 24 hr (Synjardy XR) fexofenadine 180 mg tablet 180 mg PO DAILY 01/03/22 10/20/22 History (Melissa Allergy) tirzepatide 2.5 mg/0.5 mL 7.5 mg subcut WEEKLY 10/03/22 10/20/22 History subcutaneous pen injector (Mounjaro) pantoprazole 40 mg tablet,delayed 40 mg PO QAM #30 tabs 10/04/22 10/20/22 Rx release Allergies Allergy/AdvReac Type Severity Reaction Status Date / Time cortisone Allergy Mild Confusion Verified 10/20/22 08:07 valacyclovir Allergy Mild Rash Verified 10/20/22 08:07 Exam Const: General: alert Orientation/consciousness: patient oriented x3 Resp: Auscultation: clear to auscultation bilaterally Cardio: Rhythm: regular rhythm GI: GI Palp: Yes Soft to palpation and No Tenderness to palpation present (GI) Neuro: General: patient oriented x3 Assessment and Plan Assessment and plan (1) Eosinophilic esophagitis: Code(s): K20.0 - Eosinophilic esophagitis Status: Acute Assessment and Plan: EGD with possible biopsy or dilatation or cautery.
[2022-10-20 08:12] VITALS: BP 130/82; PULSE 66; RESP 18; TEMP 36.2; O2SAT 95
[2022-10-20] MEDS: LACTATED RINGERS 1,000 ML 150 ML IV CONT (08:25)
[2022-10-20 08:27] LABS: Glucose Point of Care 130 mg/dl (65-105)
--- NOTE | 2022-10-20 08:29 | WPDANESEPPF ---
Anes - Initial Pre Proc Eval Procedure: Operation Date: 10/20/22 09:00 Proposed Procedures p Esophagogastroduodenoscopy - Matty Genao MD Date/Time: 10/20/22 08:29 Surgeon: Matty Genao MD Pre Op Diagnosis: Eosinophilic Esophagitis Patient Data Age: 52 Gender: F Height: 1.57 m Weight: 113.9 kg Last Vital Signs Temp 36.2 C L 10/20/22 08:12 Pulse 66 10/20/22 08:12 Resp 18 10/20/22 08:12 BP 130/82 10/20/22 08:12 Pulse Ox 95 10/20/22 08:12 O2 Del Method Room Air 10/20/22 08:12 Allergies Allergy/AdvReac Type Severity Reaction Status Date / Time cortisone Allergy Mild Confusion Verified 10/20/22 08:07 valacyclovir Allergy Mild Rash Verified 10/20/22 08:07 Home Medications Medication Instructions Recorded Confirmed Type escitalopram oxalate 10 mg tablet 10 mg PO DAILY 11/26/20 10/20/22 History hydrochlorothiazide 25 mg tablet 25 mg PO DAILY 11/26/20 10/20/22 History levothyroxine 125 mcg capsule 125 mcg PO DAILY 11/26/20 10/20/22 History (Tirosint) lifitegrast 5 % eye drops in a 1 drp EACH EYE DAILY 11/26/20 10/20/22 History dropperette (Xiidra) liothyronine 5 mcg tablet 5 mcg PO BID 11/26/20 10/20/22 History losartan 50 mg tablet 50 mg PO DAILY 11/26/20 10/20/22 History simvastatin 20 mg tablet 20 mg PO DAILY 11/26/20 10/20/22 History Vitamin D3 (calcium cit-phos) 50,000 units PO MONTHLY 12/14/20 10/20/22 History luxtg-9l-ekq-epa-fish oil-vit D3 3 cap PO DAILY 12/14/20 10/20/22 History 350 mg-400 mg-1,000 unit capsule empagliflozin 5 mg-metformin ER 1 tablet PO DAILY 01/03/22 10/20/22 History 1,000 mg tablet,extended release 24 hr (Synjardy XR) fexofenadine 180 mg tablet 180 mg PO DAILY 01/03/22 10/20/22 History (Melissa Allergy) tirzepatide 2.5 mg/0.5 mL 7.5 mg subcut WEEKLY 10/03/22 10/20/22 History subcutaneous pen injector (Gabrieleunjanethro) pantoprazole 40 mg tablet,delayed 40 mg PO QAM #30 tabs 10/04/22 10/20/22 Rx release Laboratory Tests 10/20/22 08:19 POC Capillary Glucose 130 mg/dl H mg/dl (65-105) Patient hx anesthesia problems: none Family hx anesthesia problems: none Results Review: All pre-operative results and documents have been reviewed as part of the pre-operative evaluation. ON LICENSE OF [facility] Past Medical History Medical History COVID-19 Depression DM II (diabetes mellitus, type II), controlled H/O: HTN (hypertension) History of angina History of kidney stones Hypercholesteremia (normal spontaneous vaginal delivery) Renal disease Sleep apnea Surgical History Surgical History History of Hx of tubal ligation Status post hysteroscopic ablation of endometrium Family History Family History Sibling Family history of obesity Asthma Grandparent Family history of obesity Family history of osteoporosis Depression Family history of chronic obstructive pulmonary disease Diabetes mellitus Mother Family history of migraine headaches Hypertension Social History Social History Smoking status: Never smoker Second hand tobacco smoke exposure: Yes Alcohol intake: never Substance use: never Substance use type: does not use Living arrangements: alone Gender identity (if verbalized by the patient): Female Spiritual care concerns: No Anes - Eval Final PreProcedure Day of Procedure 10/20/22 08:29 Patient weight: morbidly obese Airway: Mallampati scale class III ASA classification: III Anesthesia type and monitoring: general GIVS and standard monitoring Results Review: All pre-operative results and documents have been reviewed as part of the pre-operative evaluation. Informed Consent: The patient's anesthetic plan and its attendant risks and benefits were discu
[2022-10-20 08:57] VITALS: BP 134/63; PULSE 68; RESP 19; TEMP 36.2; O2SAT 100
[2022-10-20 09:07] VITALS: BP 118/64; PULSE 66; RESP 17; TEMP 36.2; O2SAT 100
[2022-10-20 09:17] VITALS: BP 117/74; PULSE 64; RESP 22; TEMP 36.2; O2SAT 100
== END 2022-10-20 09:30 | disposition home or self-care (01) ==
PROVIDERS: PCP Physician Assistant; Visit Provider Internal Medicine Gastroenterology
PROC: 0DJ08ZZ Inspection of Upper Intestinal Tract, Via Natural or Artificial Opening Endoscopic (ICD-10-PCS; CPT 43235; principal; 2022-10-20 09:00)
DX: K20.0 Eosinophilic esophagitis (principal); E11.9 Type 2 diabetes mellitus without complications; E78.00 Pure hypercholesterolemia, unspecified; F32.A Depression, unspecified; G47.30 Sleep apnea, unspecified; E66.01 Morbid (severe) obesity due to excess calories; Z68.42 Body mass index [BMI] 45.0-49.9, adult; Z79.84 Long term (current) use of oral hypoglycemic drugs
CPT/HCPCS: 43239; 82948; 88305; J2704; J7120

== ENCOUNTER 2022-12-23 11:54 | Outpatient (CLI) | payer BC, SELFPAY ==
--- NOTE | ~2022-12-23 | XR_ITS ---
EXAM: XR knee LT min 4V DATE: 12/23/2022 12:21 HISTORY: PAIN IN LEFT KNEE POSS BOWLING INJ LIMP X SEVERAL MOS . COMPARISON: 03/15/2020. FINDINGS: Normal mineralization. No fracture or dislocation. No lytic or blastic lesion. Moderate me dial joint space narrowing. Tricompartmental osteophytosis, severe in the medial and patellofemoral c ompartments. No erosion or periosteal change. Soft tissues within normal limits. IMPRESSION: No acute osseous finding in the left knee. Severe left knee osteoarthritis. Reviewed, dictated and finalized at location K. IMPRESSION: No acute osseous finding in the left knee. Severe left knee osteoar thritis.
== END 2022-12-23 11:55 | disposition home or self-care (01) ==
LOC: ANHIMG 11:59
PROVIDERS: PCP Physician Assistant; Visit Provider Physician Assistant
DX: M17.12 Unilateral primary osteoarthritis, left knee (principal)
CPT/HCPCS: 73564

== ENCOUNTER 2023-01-04 07:55 | Outpatient (CLI) | payer BC, SELFPAY ==
--- NOTE | ~2023-01-04 | DEXA_ITS ---
Bone Density Report Name: AVA GALVEZ Age: 52 Sex: Female Ethnicity: White Date of : 1970 Indication: postmenopausal; screening for osteoporosis; Referring Provider: GIA, KAILYN Study: Bone densitometry was performed. Exam Date: January 04, 2023 Accession number: [id number] Bone Density: Region BMD T-score Z-score Classification AP Spine(L1-L4) 1.121 0.7 1.4 Normal Femoral Neck (Left) 0.822 -0.2 0.5 Normal Total Hip (Left) 1.169 1.9 2.3 Normal Femoral Neck (Right) 0.866 0.2 0.9 Normal Total Hip (Right) 1.157 1.8 2.2 Normal Total Hip Mean 1.163 1.9 2.3 Normal World Health Organization criteria for BMD impression classify patients as: Normal (T-score at or above -1.0), Osteopenia (T-score between -1.0 and -2.5), or Osteoporosis (T-score at or below -2.5). 10-year Fracture Risk: FRAX not reported because: All T-scores for Spine Total, Hip Total, Femoral Neck at or above -1.0 Clinical Information Provided by Patient: Has used the following medications: Vitamin D Patient maximum height was 62 Menopause Age: 42 No regular weight bearing exercise Does not regularly consume dairy products Onset of menses at age 14 Number of children 2 Impression: The patient has normal bone mass. Discussion: BONE DENSITY IS ABOVE THE MINIMUM DESIRABLE LEVEL AT ALL SKELETAL SITES TESTED. This patient?s bone mineral density is above the minimum desirable level (T-score -1.0 or better) at all sites measured. The patient should follow a healthful lifestyle (good nutrition with adequate calcium and vitamin D, and appropriate weight-bearing exercise). Follow-Up: Consider repeating this study in 5 years or sooner if there is some new clinical indication. Reported by: ANNA on 01/04/2023 8:25:00 AM. Reviewed, dictated and finalized at location AJanett PAULINO
--- NOTE | ~2023-01-04 | MM_ITS ---
EXAMINATION: MM screening jerald BI w abigail HISTORY: Screening mammogram TECHNIQUE: Craniocaudal and mediolateral oblique 3-D tomosynthesis images were obtained and synthetic 2-D images were generated. CAD analysis was submitted and interpreted. COMPARISON: 05/30/2013 bilateral screening mammogram BREAST PARENCHYMAL COMPOSITION: There are scattered areas of fibroglandular density. FINDINGS: There is no evidence of suspicious mass, calcification, or architectural distortion to sugg est malignancy in either breast. There has been no suspicious interval change. IMPRESSION: 1. No mammographic evidence of malignancy. 2. Recommend routine screening mammography in one year. BI-RADS Category 1: Negative Reviewed, dictated and finalized at location A.
== END 2023-01-04 07:56 | disposition home or self-care (01) ==
PROVIDERS: PCP Physician Assistant; Visit Provider Nurse Practitioner
DX: Z12.31 Encounter for screening mammogram for malignant neoplasm of breast (principal); Z78.0 Asymptomatic menopausal state; Z13.820 Encounter for screening for osteoporosis
CPT/HCPCS: 77063; 77067; 77080

== ENCOUNTER 2023-08-11 10:50 | Emergency (ER) | payer BC, SELFPAY ==
--- NOTE | 2023-08-11 11:04 | ED.URI ---
HPI - URI/Sore Throat General Chief Complaint: Upper Respiratory Infection Stated Complaint: SORE THROAT Time Seen by Provider: 08/11/23 11:09 History of Present Illness HPI Narrative: 52 y/o female presented for c/o sore throat at fatigue x3 days. Denies sob, wheezing, n/v/d/f/c. Denies sick contacts. Not taking anything for symptoms. Related Data Home Medications Medication Instructions Recorded Confirmed escitalopram oxalate 10 mg tablet 10 mg PO DAILY 11/26/20 08/11/23 hydrochlorothiazide 25 mg tablet 25 mg PO DAILY 11/26/20 08/11/23 levothyroxine 125 mcg capsule 125 mcg PO DAILY 11/26/20 08/11/23 (Tirosint) lifitegrast 5 % eye drops in a 1 drp EACH EYE DAILY 11/26/20 08/11/23 dropperette (Xiidra) liothyronine 5 mcg tablet 5 mcg PO BID 11/26/20 08/11/23 losartan 50 mg tablet 50 mg PO DAILY 11/26/20 08/11/23 simvastatin 20 mg tablet 20 mg PO DAILY 11/26/20 08/11/23 Vitamin D3 (calcium cit-phos) 50,000 units PO MONTHLY 12/14/20 08/11/23 fzkfl-2a-kbs-epa-fish oil-vit D3 3 cap PO DAILY 12/14/20 08/11/23 350 mg-400 mg-1,000 unit capsule empagliflozin 5 mg-metformin ER 1 tablet PO DAILY 01/03/22 08/11/23 1,000 mg tablet,extended release 24 hr (Synjardy XR) fexofenadine 180 mg tablet 180 mg PO DAILY 01/03/22 08/11/23 (Melissa Allergy) tirzepatide 2.5 mg/0.5 mL 7.5 mg subcut WEEKLY 10/03/22 08/11/23 subcutaneous pen injector (Mounjaro) Allergies Allergy/AdvReac Type Severity Reaction Status Date / Time cortisone Allergy Mild Confusion Verified 08/11/23 11:07 valacyclovir Allergy Mild Rash Verified 08/11/23 11:07 Review of Systems Review of Systems: CONSTITUTIONAL: Reports fatigue Denies body aches, fever, chills, or sweats. EYES: Denies visual changes, redness, or discharge. ENT: Reports sore throat denies rhinorrhea, congestion, or otalgia. CARDIOVASCULAR: Denies chest pain, palpitations, or edema. RESPIRATORY: Denies dyspnea. GASTROINTESTINAL: Denies abdominal pain, nausea, vomiting, or diarrhea. SKIN: Denies rash, itching, or wounds. MUSCULOSKELETAL: Denies back pain, joint pain, or myalgia. [facility] Past Medical History Medical History COVID-19 Depression DM II (diabetes mellitus, type II), controlled H/O: HTN (hypertension) History of angina History of kidney stones Hypercholesteremia (normal spontaneous vaginal delivery) Renal disease Sleep apnea Surgical History Surgical History History of Hx of tubal ligation Status post hysteroscopic ablation of endometrium Family History Family History Sibling Family history of obesity Asthma Grandparent Family history of obesity Family history of osteoporosis Depression Family history of chronic obstructive pulmonary disease Diabetes mellitus Mother Family history of migraine headaches Hypertension Social History Social History Smoking status: Never smoker Second hand tobacco smoke exposure: Yes Alcohol intake: never Substance use: never Substance use type: does not use Living arrangements: alone Gender identity (if verbalized by the patient): Female Spiritual care concerns: No Exam Narrative: GENERAL: mildly Ill-appearing, no acute distress. EYES: conjunctivae clear ENT: Mucous membranes moist. TM pearly ohara with normal light reflex bilaterally; no tragal tenderness. Oropharynx not erythematous without lesions. Tonsils absent; No drooling, no hoarseness, no trismus, uvula midline. No tripod positioning, hot potato voice, or soft palate swelling. NECK: Supple. No lymphadenopathy CHEST: Clear to auscultation, breath sounds equal. No respiratory distress, speaks in full sentences. HEART: Regular rate and rhythm. No murmur heard. SKIN: Warm, dry, no rash. NEUR
[2023-08-11 11:10] VITALS: BP 140/94; PULSE 82; RESP 16; TEMP 36.8; O2SAT 98
== END 2023-08-11 11:44 | disposition home or self-care (01) ==
PROVIDERS: Emergency Provider Nurse Practitioner Family; PCP Physician Assistant
DX: B34.9 Viral infection, unspecified (principal); Z20.822 Contact with and (suspected) exposure to COVID-19; E11.9 Type 2 diabetes mellitus without complications; I10 Essential (primary) hypertension; I20.9 Angina pectoris, unspecified; E78.00 Pure hypercholesterolemia, unspecified; Z86.16 Personal history of COVID-19; F32.A Depression, unspecified
CPT/HCPCS: 87081; 87426; 87880; 99213; C9803; G0463

== ENCOUNTER 2025-06-04 07:17 | Outpatient (CLI) | payer BC, SELFPAY ==
--- NOTE | ~2025-06-04 | MM_ITS ---
EXAMINATION: MM screening jerald BI w abigail HISTORY: Screening TECHNIQUE: Craniocaudal and mediolateral oblique 3-D tomosynthesis images were obtained and synthetic 2-D images were generated. CAD analysis was submitted and interpreted. COMPARISON: Comparison to multiple prior studies sequentially, with oldest reviewed study dated , 05/24/2012 BREAST PARENCHYMAL COMPOSITION: There are scattered areas of fibroglandular density. FINDINGS: There is no evidence of suspicious mass, calcification, or architectural distortion to suggest malignancy in either breast. IMPRESSION: 1. No mammographic evidence of malignancy. 2. Recommend routine screening mammography in one year. BI-RADS Category 1: Negative Reviewed, dictated and finalized at location B.
== END 2025-06-04 07:18 | disposition home or self-care (01) ==
PROVIDERS: PCP Physician Assistant; Visit Provider Nurse Practitioner
DX: Z12.31 Encounter for screening mammogram for malignant neoplasm of breast (principal)
CPT/HCPCS: 77063; 77067